=== PATIENT | male | born 1990 | race Caucasian/White ===

== ENCOUNTER 2019-02-25 11:13 | Emergency (ER) | payer OTHER ==
[2019-02-25 13:28] LABS: ADD MAN DIFF? NO
[2019-02-25 13:29] LABS: BASOPHIL # 0.1 10^3/ul (0.0-0.1); BASOPHILS % 0.5 % (0.0-2.0); EOSINOPHILS # 0.4 10^3/ul (0.0-0.5); HEMATOCRIT 40.1 % (42.0-52.0); HEMOGLOBIN 12.7 g/dl (14.0-18.0); LYMPHOCYTES # 1.5 10^3/ul (0.8-2.9); LYMPHOCYTES % 16.7 % (15.0-51.0); MEAN CORPUSCULAR HEMOGLOBIN 26.5 pg (29.0-33.0); MEAN CORPUSCULAR HGB CONC 31.7 g/dl (32.0-37.0); MEAN CORPUSCULAR VOLUME 83.5 fl (82.0-101.0); MEAN PLATELET VOLUME 10.6 fl (7.4-10.4); MONOCYTE # 0.6 10^3/ul (0.3-0.9); MONOCYTES % 6.6 % (0.0-11.0); NEUTROPHIL # 6.6 10^3/ul (1.6-7.5); NEUTROPHILS % 71.9 % (39.0-77.0); PLATELET COUNT 330 10^3/UL (140-415); RED CELL DISTRIBUTION WIDTH 12.6 % (11.5-14.5)
[2019-02-25 13:29] LABS: WHITE BLOOD COUNT 9.2 10^3/ul (4.8-10.8)
[2019-02-25] MEDS: CEFTRIAXONE 1 GM/50 ML (PMX) 50 ML IVPB (13:41)
[2019-02-25 13:50] LABS: ALANINE AMINOTRANSFERASE 44 IU/L (13-69); ALBUMIN 4.1 g/dl (3.3-4.9); ALBUMIN/GLOBULIN RATIO 1.24; ALKALINE PHOSPHATASE 107 IU/L (42-121); ANION GAP 8 (5-13); ASPARTATE AMINO TRANSFERASE 33 IU/L (15-46); BILIRUBIN,INDIRECT 0.1 mg/dl (0-1.1); BILIRUBIN,TOTAL 0.1 mg/dl (0.2-1.3); BLOOD UREA NITROGEN 12 mg/dl (7-20); CALCIUM 9.8 mg/dl (8.4-10.2); CARBON DIOXIDE 32 mmol/L (21-31); CHLORIDE 104 mmol/L (97-110); CREATININE 0.92 mg/dl (0.61-1.24); Estimated GFR > 60 mL/min (>60); GLUCOSE 109 mg/dl (70-220); POTASSIUM 3.8 mmol/L (3.5-5.1); SODIUM 144 mmol/L (135-144); TOTAL PROTEIN 7.4 g/dl (6.1-8.1)
[2019-02-25] MEDS: VANCOMYCIN 1 GM (PMX) 250 ML IVPB (16:05)
== END 2019-02-25 16:28 | disposition home or self-care (01) ==
LOC: FTE 11:13
DX: L03.115 Cellulitis of right lower limb (principal)
CPT/HCPCS: 80053; 85025; 96374; 96375; 99284-25

== ENCOUNTER 2019-03-01 15:50 | Emergency (ER) | payer OTHER ==
[2019-03-01] MEDS: KETOROLAC 30 MG INJ IM ×2 (18:21→18:28)
== END 2019-03-01 18:38 | disposition home or self-care (01) ==
LOC: FTE 18:38
DX: R22.43 Localized swelling, mass and lump, lower limb, bilateral (principal)
CPT/HCPCS: 99282; Z7502

== ENCOUNTER 2019-03-25 23:11 | Emergency (ER) | payer OTHER ==
[2019-03-26] MEDS: CEFTRIAXONE 1 GM INJ IM (03:50)
[2019-03-26] MEDS: LIDOCAINE 1% (MPF) 5 ML VIAL INFIL (03:50)
== END 2019-03-26 03:59 | disposition home or self-care (01) ==
LOC: FTE 23:11
DX: L03.116 Cellulitis of left lower limb (principal); L03.115 Cellulitis of right lower limb; F17.210 Nicotine dependence, cigarettes, uncomplicated
CPT/HCPCS: 96372; 99284-25